=== PATIENT | male | born 1960 | race Caucasian/White ===

== ENCOUNTER → 2023-03-11 12:00 | Outpatient (REF) | payer OTHER, SELFPAY | LOC: DHSLP 12:00 | PROVIDERS: ATTENDING PHYSICIAN Otolaryngology; FAMILY PHYSICIAN Internal Medicine | DX: G47.33 Obstructive sleep apnea (adult) (pediatric) (principal) | CPT/HCPCS: 95800 ==

== ENCOUNTER → 2023-03-28 11:05 | Outpatient (REF) | payer MEDICARE, OTHER, SELFPAY | LOC: HWRAD 11:05 | PROVIDERS: ATTENDING PHYSICIAN Internal Medicine | DX: E78.00 Pure hypercholesterolemia, unspecified (principal) | CPT/HCPCS: 75571 ==

== ENCOUNTER → 2023-12-02 06:32 | Outpatient (REF) | payer MEDICARE, OTHER, SELFPAY ==
[2023-12-02 09:00] LABS: Hematocrit 41.5 % (39.0-52.0); Hemoglobin 13.2 g/dL (13.0-18.0); Mean Corp Hgb Conc. 31.8 g/dL (33.0-37.0); Mean Corpuscular Hgb 19.9 pg (27.0-31.0); Mean Corpuscular Volume 62.5 fL (80.0-94.0); Red Blood Cell Count 6.64 10^6/uL (4.70-6.10); Red Cell Dist. Width 17.8 % (11.5-14.5)
[2023-12-02 09:01] LABS: Platelet Count 257 10^3/uL (130-400)
[2023-12-02 09:25] LABS: Blood Urea Nitrogen 19 mg/dl (9-20); Calcium 9.5 mg/dl (8.4-10.2); Carbon Dioxide 27 mmol/L (22-30); Chloride 103 mmol/L (98-107); Glucose 85 mg/dl (70-99); Potassium 4.1 mmol/L (3.5-5.1); Sodium 144 mmol/L (135-145); eGFR > 60.00
== END ==
LOC: SDSPAT 06:32
PROVIDERS: ATTENDING PHYSICIAN Surgery; FAMILY PHYSICIAN Internal Medicine
DX: Z01.818 Encounter for other preprocedural examination (principal)
CPT/HCPCS: 36415; 80048; 85027; 93005

== ENCOUNTER 2023-12-02 09:58 | Outpatient (RCR) | payer MEDICARE, OTHER, SELFPAY | END 2023-12-02 23:59 | disposition home or self-care (01) | LOC: RPT 09:58 | PROVIDERS: ATTENDING PHYSICIAN Podiatrist Primary Podiatric Medicine; FAMILY PHYSICIAN Internal Medicine | DX: M79.672 Pain in left foot (principal) | CPT/HCPCS: 97110; 97162; 97535 ==

== ENCOUNTER 2023-12-15 06:26 | Day surgery (SDC) | payer MEDICARE, OTHER, SELFPAY ==
[2023-12-02 08:22] VITALS: BMI 26.0
[2023-12-15] VITALS (10 sets, daily range): BP systolic 111–148; BP diastolic 75–101; BMI 26.0
--- NOTE | 2023-12-15 07:26 | HP.FOC2 ---
Focused History & Physical
Chief Complaint
HPI:
Chief Complaint: Right inguinal hernia
HPI / Indication for Planned Procedure: Patient is a 63-year-old male recently seen in outpatient surgical evaluation secondary to a history of discomfort and swelling in the right inguinal region. 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
swelling particularly by the afternoon when he was standing on his feet in the right inguinal area. Outpatient evaluation confirmed the presence of a readily apparent right inguinal hernia. He presents today for scheduled operative correction.
Relevant Past Medical History: Other (Hyperlipidemia, hypertension, right bundle branch block, previous history of colon polyp, thalassemia trait, BPH, vertigo)
Relevant Social History: Negative
Relevant Family History: Negative
Relevant Past Surgical History: Negative
Review of Systems
Review of Pertinent Systems: All Systems Negative
Medication
See Medication form for detailed medications: Yes
Medication List (including Herbals & OTC):
lisinopril 20 mg tablet 20 mg PO QPM 11/14/17
tamsulosin 0.4 mg capsule 0.4 mg PO DAILY ##30 11/16/17
acetaminophen 325 mg tablet (Tylenol) 650 mg PO Q6H PRN pain 12/05/23
cholecalciferol (vitamin D3) 25 mcg (1,000 unit) tablet (Vitamin D3) 25 mcg PO HS 12/05/23
cranberry juice 4,200 mg PO DAILY 12/05/23
famotidine 40 mg tablet 40 mg PO HS 12/05/23
finasteride 5 mg tablet 5 mg PO DAILY 12/05/23
hydrochlorothiazide 12.5 mg tablet 12.5 mg PO DAILY 12/05/23
omeprazole 40 mg capsule,delayed release 40 mg PO DIRECTED 12/05/23
rosuvastatin 5 mg tablet 5 mg PO HS 12/05/23
Medications Reviewed: Yes
Allergies and Reactions
Patient has Allergies: Yes
Noted Allergies and Reactions:
Allergy/AdvReac Type Severity Reaction Status Date / Time
acetaminophen [From Percocet] AdvReac Unknown Verified 12/05/23 09:44
oxycodone HCl [From Percocet] AdvReac DIZZINESS/H Verified 12/05/23 09:44
YPER
Pertinent Physical Exam
All Other Systems: Negative
Head/Neck: Normal
Lungs: Normal
Heart: Normal
Abdomen: Other (Reducible right inguinal hernia)
Extremities: Normal
Neurological: Normal
Diagnosis / Assessment
Patient is a 63-year-old male presenting for scheduled operative correction symptomatic right inguinal hernia
Plan / Procedure
Robotic assisted laparoscopic repair right inguinal hernia with mesh
Anesthesia/Sedation to be done by Anesthesia Provider: Yes
--- NOTE | 2023-12-15 08:38 | W.SUR.PREOP ---
Pre-Operative Surgical Note
-
I have examined this patient prior to the performance of the scheduled procedure.
The patient's condition is unchanged from the time of the current History and
Physical and the patient is able to undergo the scheduled procedure.
--- NOTE | 2023-12-15 10:25 | W.IMMPOSTOP ---
Surgical Immed Post Op Note
-
Primary Surgeon: Eleanor
Assisting Surgeon: Whitley Foote PA-C
Pre-op Diagnosis: Right inguinal hernia
Post-op Diagnosis: Right inguinal hernia, indirect
Procedure Performed: Robotic assisted laparoscopic ILIR repair right inguinal hernia with mesh; 3D max large mid weight
Anesthesia Type: GETA +0.25% Marcaine
Specimen / Cultures: None
Estimated Blood Loss: 4 mL
Complications: None immediate
Operative Findings: Right indirect inguinal hernia with modest hernia sac and sizable lipomatous protrusion of inguinal canal. Cord lipoma excised to facilitate mesh placement. Direct and femoral space normal. 3D max large mid weight mesh repair
secured to Ton's ligament with 2-0 Vicryl x 2. Peritoneal flap closed with 2-0 Monocryl STRATAFIX spiral. No additional incidental findings.
The assistance of Whitley Foote PA-C was required due to the complexity of the procedure. During the procedure Whitley Foote PA-C assisted with port placement, robotic instrumentation and suture material exchanges, and closure of the surgical incision
sites. I was present for the entirety of the operative procedure.
--- NOTE | 2023-12-15 10:27 | OR.RPT ---
Operative Report
Operative Report
Date of operative procedure: 12/15/2023
Primary Surgeon: Talat Webtser MD
Assisting Surgeon: Whitley Foote PA-C
Pre-op Diagnosis: Right inguinal hernia
Post-op Diagnosis: Right inguinal hernia, indirect
Procedure Performed: Robotic assisted laparoscopic ILIR repair right inguinal hernia with mesh; 3D max large mid weight
Anesthesia Type: GETA +0.25% Marcaine
Specimen / Cultures: None/none
Estimated Blood Loss: 4 mL
Complications: None immediate
Indications for operative procedure: Patient is a 63-year-old male recently seen in outpatient surgical evaluation secondary to a history of discomfort and swelling in the right inguinal region. 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
swelling particularly by the afternoon when he was standing on his feet in the right inguinal area. Outpatient evaluation confirmed the presence of a readily apparent right inguinal hernia. He presents today for scheduled operative correction.
Anticipated operative procedure was fully reviewed in detail preoperatively obtaining written informed consent.
Brief summary of operative Findings: Right indirect inguinal hernia with modest hernia sac and sizable lipomatous protrusion of inguinal canal. Cord lipoma excised to facilitate mesh placement. Right direct and femoral space normal. 3D max large
mid weight mesh repair secured to Ton's ligament with 2-0 Vicryl x 2. Peritoneal flap closed with 2-0 Monocryl STRATAFIX spiral. No incidental findings.
Operation detail: The patient was identified in the preoperative holding area. I confirmed the surgical site and side with the patient preoperatively which was then marked and initialed by myself. He was interviewed by the anesthesia and nursing
staff then brought back to the operating room. The patient was placed on the operating table in supine position. The bilateral upper extremities were carefully padded and tucked at his side utilizing the arm guard positioning system. Pneumatic
compression boots were on the bilateral lower extremities. Following induction of general endotracheal anesthesia the patient was administered Ancef 2 g IV for prophylactic antibiotic coverage. The patient's anterior abdominal wall was now widely
and sterilely prepped with ChloraPrep and then draped in the usual manner. The surgical timeout was completed and the procedure was confirmed.
I initially proceeded with Veress needle insufflation in the left subcostal midclavicular line location. Once insufflated to 12 mmHg pressure then a left midclavicular line 8 mm trocar was then placed. The robotic scope was inserted, there was no
evidence of iatrogenic injury from access. The Veress needle was withdrawn. An epigastric 8 mm trocar was placed just to the right of the midline. A right midclavicular line 8 mm trocar was placed. The patient was then transition into 18 degrees
Trendelenburg to expose the inguinal/pelvic space and the robot was docked.
At the surgeon console inspection of the pelvis confirmed the presence of a right indirect inguinal hernia. There were no additional incidental intra-abdominal findings.
I initially began with creation of a peritoneal flap at the level of the right ASIS to the right medial umbilical ligament. The preperitoneal plane was now easily established along the length of the flap and developed inferiorly down to the
inguinal space. The medial dissection proceeded until the notch of the pubic symphysis was exposed at the midline followed by Ton's ligament on the right side. Ton's ligament was now cleared through the direct and femoral space; both of
which were normal. The underside of Ton's ligament was exposed as well. The peritoneal flap was now mobilized laterally down to the internal ring. The hernia sac was then grasped and begun to be reduced out of the inguinal canal from an
anterior lateral to anterior medial approach. As I continued to dissect/reduce the hernia sac a large lipomatous protrusion was noted along the anterior lateral aspect. The lipomatous tissue was now carefully grasped and continued to be reduced
out of the inguinal canal and off cremasteric fibers of the cord. As the lipoma was reduced the hernia sac was dissected from the cord structures with identifying the spermatic cord vessels and the vas deferens easily during this dissection. The
hernia sac dissection to mobilize it freely continued back proximally past the turn in the right vas deferens and then overlying the right iliac space to meet up with the medial dissection. The posterior dissection continued until there was wide
separation between the vas and the spermatic cord vessels. Next the lipomatous tissue was dissected free from the spermatic cord tissues and the hernia sac. I excised the cord lipoma to facilitate mesh placement and ensure good exposure of the
myopectineal orifice for repair.
With the myopectineal orifice now completely exposed hemostasis was confirmed. A 3D max large mid weight mesh, right side was utilized for repair. The mesh was positioned parallel to the ileopubic tract. It was secured at 2 separate locations
inferior medially on Ton's ligament with 2 simple interrupted 2-0 Vicryl sutures. The patient was now begun to be taken out of Trendelenburg to confirm that the posterior aspect of the mesh was lying flat and that there was no shelling or
undermining of the mesh by the peritoneal edge. Insufflation pressure was reduced down to 8 mmHg pressure. The peritoneal flap was now closed with a 2-0 Monocryl STRATAFIX spiral suture with a running Reginald type stitch.
A flexible suction catheter was placed through an 8 mm trocar and introduced into the peritoneal flap to evacuate the air out of the preperitoneal space. This again confirmed good positioning of the inguinal hernia mesh. There was no shelling nor
folding of the mesh and no undermining and mesh by the peritoneal edge. The peritoneal covering of the mesh was completely intact.
At this point the robot was undocked. The lipomatous tissue was removed within a specimen extraction bag and discarded. All sponge instrument and needle counts were confirmed to be correct x 2. The CO2 insufflation was now carefully evacuated
out of the abdominal cavity. The trocar sites were removed as well as the flexible suction catheter. Skin was closed with 4-0 Monocryl. Sterile surgical glue dressings were applied. The patient tolerated the procedure well and was transferred to
the recovery unit for routine postoperative monitoring.
The assistance of Whitley Foote PA-C was required due to complexity of surgery. During the procedure Whitley Foote PA-C assisted with port placement, robotic instrumentation and suture material exchanges as well as closure of the surgical sites. I
was present for the entirety of the operative procedure.
== END 2023-12-15 12:05 | disposition home or self-care (01) ==
LOC: SDS 06:26
PROVIDERS: ATTENDING PHYSICIAN Surgery; FAMILY PHYSICIAN Internal Medicine
DX: K40.90 Unilateral inguinal hernia, without obstruction or gangrene, not specified as recurrent (principal)
CPT/HCPCS: 49650; C1781

== ENCOUNTER 2024-01-07 17:03 | Outpatient (RCR) | payer MEDICARE, OTHER, SELFPAY | END 2024-01-07 23:59 | disposition home or self-care (01) | LOC: RPT 17:03 | PROVIDERS: ATTENDING PHYSICIAN Podiatrist Primary Podiatric Medicine; FAMILY PHYSICIAN Internal Medicine | DX: M79.672 Pain in left foot (principal); R26.89 Other abnormalities of gait and mobility; Z73.6 Limitation of activities due to disability | CPT/HCPCS: 97110 ==

== ENCOUNTER 2024-01-20 10:03 | Outpatient (RCR) | payer MEDICARE, OTHER, SELFPAY | END 2024-01-20 14:07 | disposition home or self-care (01) | LOC: RPT 10:03 | PROVIDERS: ATTENDING PHYSICIAN Podiatrist Primary Podiatric Medicine; FAMILY PHYSICIAN Internal Medicine | DX: M79.672 Pain in left foot (principal); R26.89 Other abnormalities of gait and mobility; Z73.6 Limitation of activities due to disability | CPT/HCPCS: 97110 ==

== ENCOUNTER 2024-03-01 06:18 | Day surgery (SDC) | payer MEDICARE, OTHER, SELFPAY | END 2024-03-01 08:28 | disposition home or self-care (01) | LOC: GI 06:18 | PROVIDERS: ATTENDING PHYSICIAN Internal Medicine Gastroenterology; FAMILY PHYSICIAN Internal Medicine | DX: Z12.11 Encounter for screening for malignant neoplasm of colon (principal); K57.30 Diverticulosis of large intestine without perforation or abscess without bleeding; K64.8 Other hemorrhoids; Z86.0100 Personal history of colon polyps, unspecified; Z98.890 Other specified postprocedural states | CPT/HCPCS: G0105 ==

== ENCOUNTER → 2024-06-16 08:13 | Outpatient (REF) | payer MEDICARE, OTHER, SELFPAY | LOC: RCS 08:13 | PROVIDERS: ATTENDING PHYSICIAN Internal Medicine Cardiovascular Disease; FAMILY PHYSICIAN Internal Medicine | DX: I45.2 Bifascicular block (principal); I49.3 Ventricular premature depolarization; I25.10 Atherosclerotic heart disease of native coronary artery without angina pectoris | CPT/HCPCS: 93306 ==

== ENCOUNTER → 2024-12-16 09:27 | Outpatient (REF) | payer MEDICARE, OTHER, SELFPAY | LOC: MRI 3T 09:27 | PROVIDERS: ATTENDING PHYSICIAN Internal Medicine | DX: R51.9 Headache, unspecified (principal) | CPT/HCPCS: 70551 ==

== ENCOUNTER → 2024-12-28 08:24 | Outpatient (REF) | payer MEDICARE, OTHER, SELFPAY | LOC: RCS 08:24 | PROVIDERS: ATTENDING PHYSICIAN Internal Medicine Cardiovascular Disease; FAMILY PHYSICIAN Internal Medicine | DX: I45.2 Bifascicular block (principal); I49.3 Ventricular premature depolarization; I25.10 Atherosclerotic heart disease of native coronary artery without angina pectoris | CPT/HCPCS: 93017; 93350 ==